=== PATIENT | female | born 1950 | race Hispanic/Latino ===

== ENCOUNTER → 2017-09-22 | Outpatient (CLI) | payer OTHER | END | disposition home or self-care (01) | LOC: RAH 14:26 | PROVIDERS: ATTEND Physician Assistant Medical | DX: I70.90 Unspecified atherosclerosis (principal); M79.605 Pain in left leg; M79.604 Pain in right leg | CPT/HCPCS: 93925 ==

== ENCOUNTER → 2019-01-03 | Outpatient (CLI) | payer OTHER | END | disposition home or self-care (01) | LOC: SHCH 14:43 | PROVIDERS: ATTEND Internal Medicine Cardiovascular Disease | DX: I08.0 Rheumatic disorders of both mitral and aortic valves (principal) | CPT/HCPCS: 93306 ==

== ENCOUNTER → 2019-01-05 | Outpatient (CLI) | payer OTHER ==
[~2019-01-05] VITALS: Ht 152.4 cm; Wt 68.0 kg
[~2019-01-05] MED LIST: REGADENOSON 0.4 MG/5 ML PF SYG IVP SCH
== END | disposition home or self-care (01) ==
LOC: SHCH 08:39
PROVIDERS: ATTEND Internal Medicine Cardiovascular Disease
DX: R00.1 Bradycardia, unspecified (principal)
CPT/HCPCS: 78452; 93017; 96374; A9500 ×2; J2785

== ENCOUNTER → 2020-09-19 | Outpatient (CLI) | payer OTHER | END | disposition home or self-care (01) | LOC: SHCH 10:06 | PROVIDERS: ATTEND Internal Medicine Cardiovascular Disease | DX: I25.2 Old myocardial infarction (principal); R01.1 Cardiac murmur, unspecified; I10 Essential (primary) hypertension; E78.5 Hyperlipidemia, unspecified | CPT/HCPCS: 93306; 93356 ==

== ENCOUNTER → 2022-05-12 | Outpatient (CLI) | payer OTHER | END | disposition home or self-care (01) | LOC: SHCH 08:34 | PROVIDERS: ATTEND Internal Medicine Cardiovascular Disease | DX: I45.10 Unspecified right bundle-branch block (principal); I25.10 Atherosclerotic heart disease of native coronary artery without angina pectoris; I11.9 Hypertensive heart disease without heart failure; E78.5 Hyperlipidemia, unspecified; Z95.5 Presence of coronary angioplasty implant and graft; Z95.1 Presence of aortocoronary bypass graft | CPT/HCPCS: 78452; 96374; 93017; J2785; A9500 ×2 ==

== ENCOUNTER 2022-08-19 18:32 | Emergency (ER) | payer OTHER ==
[~2022-08-19] VITALS: Ht 162.6 cm; Wt 60.8 kg
[~2022-08-19 18:32] MED LIST changes: +AMLO-258 PO; +ERGO500093 PO; +EZET10TA48 PO; +GABA300S3 PO; +LISI40TA9 PO; +PANT40GR PO; -REGADENOSON 0.4 MG/5 ML PF SYG IVP SCH; +ROSU40TA21 PO; +TRAM50TA4 PO
[2022-08-19 18:38] VITALS: BP 151/62
== END 2022-08-19 21:41 | disposition home or self-care (01) ==
LOC: EDH 18:32
DX: G89.18 Other acute postprocedural pain (principal); R07.9 Chest pain, unspecified; I10 Essential (primary) hypertension; E78.00 Pure hypercholesterolemia, unspecified; E03.9 Hypothyroidism, unspecified; Z88.8 Allergy status to other drugs, medicaments and biological substances; Z88.0 Allergy status to penicillin; Z79.899 Other long term (current) drug therapy
CPT/HCPCS: 71045

== ENCOUNTER → 2024-09-05 | Outpatient (CLI) | payer OTHER ==
[~2024-09-05] MED LIST changes: -ROSU40TA21 PO; +ROSU40TA88 PO
--- NOTE | 2024-09-05 16:32 | HMCIMG ---
US ARTERIAL BILAT LOW EXT DUPL HISTORY: Claudication COMPARISON: None TECHNIQUE: Bilateral lower extremity arterial Doppler ultrasound study was performed. FINDINGS: Normal triphasic arterial waveforms are seen in the bilateral common femoral arteries. Abnormal monophasic arterial waveforms are noted in the bilateral superficial femoral, popliteal, posterior tibial and dorsalis pedal arteries. On the right, the peak systolic velocity of the common femoral artery is 196 cm/s, the proximal femoral artery is 175 cm/s, the mid femoral artery is 110 cm/s, the distal femoral artery is 76 cm/s, the proximal popliteal artery is 97 cm/s, the distal popliteal artery is 61 cm/s, the anterior tibial artery is 29 cm/s, the posterior tibial artery artery is 19 cm/s,and the dorsalis pedal artery is 28 cm/s. On the left, the peak systolic velocity of the common femoral artery is 160 cm/s, the proximal femoral artery is 153 cm/s, the mid femoral artery is 93 cm/s, the distal femoral artery is 99 cm/s, the proximal popliteal artery is 167 cm/s, the distal popliteal artery is 171 cm/s, the anterior tibial artery is 37 cm/s, the posterior tibial artery artery is 24 cm/s,and the dorsalis pedal artery is 33 cm/s. IMPRESSION: 1. Atherosclerotic disease. 2. Abnormal monophasic arterial waveforms are noted in the bilateral superficial femoral, popliteal, posterior tibial and dorsalis pedal arteries.
== END | disposition home or self-care (01) ==
LOC: RAH 14:32
PROVIDERS: ATTEND Internal Medicine Critical Care Medicine
DX: I70.203 Unspecified atherosclerosis of native arteries of extremities, bilateral legs (principal)
CPT/HCPCS: 93925